=== PATIENT | female | born 1990 | race Caucasian/White ===

== ENCOUNTER → 2018-02-03 | Outpatient (CLI) | payer OTHER ==
--- NOTE | 2018-02-03 17:25 | RADIOLOGY IMAGING REPORT ---
FACILITY: [facility] PATIENT NAME: Elsie Upton : 1990 MR: [id number] V: [id number] EXAM DATE: ORDERING PHYSICIAN: HILARIO LAM TECHNOLOGIST: Location: [facility] Patient: Elsie Upton : 1990 Visit/Account:[id number] Date of Sevice: 02/03/2018 PELVIC HISTORY: Irregular menses TECHNIQUE: Transabdominal and transvaginal ultrasound pelvis. COMPARISON: None. FINDINGS: Uterus: ; 7.4 cm length x 3.1 cm AP x 4.8 cm transverse. Myometrium: Unremarkable. Endometrium: Unremarkable; double thickness 3.8 mm. Cervix: Grossly negative. Ovaries: Right - 3.3 x 2.8 x 2.3 cm Left - 3.2 x 2.2 x 1.9 cm Blood flow is documented in each ovary by duplex Doppler ultrasound. Adnexa: Grossly unremarkable. Free pelvic fluid: None. IMPRESSION: Unremarkable pelvic ultrasound Report Dictated By: Nicole Olmedo MD at 02/03/2018 5:20 PM Report E-Signed By: Nicole Olmedo MD at 02/03/2018 5:22 PM WSN:[id number]
== END ==
LOC: US 15:33
PROVIDERS: ATTEND Family Medicine
DX: N92.6 Irregular menstruation, unspecified (principal)
CPT/HCPCS: 76830; 76856